=== PATIENT | male | born 2000 | race Caucasian/White ===

== ENCOUNTER 2018-06-06 17:54 | Emergency (ER) | payer BC ==
--- NOTE | 2018-06-06 17:59 | EDM.PDOC ---
<Micheal Jha - Last Filed: 06/06/18 18:55> ED HPI GENERAL MEDICAL PROBLEM - General Stated Complaint: PT HAS STOMACH PAINS Time Seen by Provider: 06/06/18 17:56 Source of Information: Reports: Patient History Limitations: Reports: No Limitations - History of Present Illness INITIAL COMMENTS - FREE TEXT/NARRATIVE: HISTORY AND PHYSICAL: History of present illness: 17-year-old male presenting to emergency department with chief complaint of 2 weeks of progressively worsening abdominal pain and diarrhea with past medical history of Crohn's disease. Patient is originally from [place], [place] where he sees Dr. Gage, therapeutic radiologist. He has been visiting and working in [place] for the past few months. States that over the past 2 weeks he has been having worsening generalized abdominal pain as well as diarrhea. He has been having 2-3 bowel movements for the past 2 weeks with moderate to severe abdominal pain. States that it feels like he needs to defecate but is unable. He does have watery diarrhea and when he does defecate. Over the past 2 days his abdominal pain has worsened and he has started have some nausea and vomiting. States he has not been able to eat or keep anything down. He denies any associated fever, chills, sore throat, cough, or other signs of systemic infection. He has no other significant past medical history other than Crohn's. Patient states that he last saw his therapeutic radiologist approximatly 6 months ago at which time he had a colonoscopy. States that the therapeutic radiologist said that he had a significant amount of polyps in the large and small bowel. Also, patient did have noted polyps in the esophagus. Patient states that the therapeutic radiologist stated that his colon looked like "hamburger meat". He has had previous consult with surgery in [place]. Patient was on Humira for approximately 1-2 months but last dose was approximately 4 months ago. Stopped the medication secondary to his mother not able to afford the medication. At that time he is GI specialist tried to use diet modifications which patient states it seems to have made his symptoms worse. On exam patient has generalized abdominal tenderness specifically in the right upper and left upper quadrant. Abdomen is soft not rigid with positive bowel sounds. Tru Owens index scales core of 9 shows patient in active Crohn's. Review of systems: As per history of present illness and below otherwise all systems reviewed and negative. Past medical history: As per history of present illness and as reviewed below otherwise noncontributory. Surgical history: As per history of present illness and as reviewed below otherwise noncontributory. Social history: No reported history of drug or alcohol abuse. Family history: As per history of present illness and as reviewed below otherwise noncontributory. Physical exam: HEENT: Atraumatic, normocephalic, pupils reactive, negative for conjunctival pallor or scleral icterus, mucous membranes moist, throat clear, neck supple, nontender, trachea midline. Lungs: Clear to auscultation, breath sounds equal bilaterally, chest nontender. Heart: S1S2, regular, negative for clicks, rubs, or JVD. Abdomen: Soft, nondistended, nontender. Negative for masses or hepatosplenomegaly. Negative for costovertebral tenderness. Pelvis: Stable nontender. Genitourinary: Deferred. Rectal: Deferred. Extremities: Atraumatic, negative for cords or calf pain. Neurovascular unremarkable. Neuro: Awake, alert, oriented. Cranial nerves II through XII unremarkable. Cerebellum unremarkable. Motor and sensory unremarkable throughout. Exam nonfocal. Diagnostics: CBC, CMP, CRP, ESR, CT abdomen pelvis, stool culture Therapeutics: 8 mg mg Zofran IV 125 mg IV Solu-Medrol 1 Impression: Nausea and vomiting Recurrent diarrhea Active Crohn's disease Plan: I did initially speak with Dr. Benavidez, hospitalist, about this patient when he presented to let him know that he would most likely be an admission but I had just started the workup. Dr. Mehta was made aware patient history, physical, and pertinent studies ordered. He will be taking over the patient at 1900 hrs. Definitive disposition and diagnosis as appropriate pending reevaluation and review of above. LLQ Pain Score (Numeric/FACES): 7 - Related Data Allergies Allergy/AdvReac Type Severity Reaction Status Date / Time No Known Allergies Allergy Verified 06/06/18 18:09 Home Meds: Home Meds . [No Known Home Meds] 06/06/18 [History] ED ROS GENERAL - Review of Systems Review Of Systems: ROS reveals no pertinent complaints other than HPI. ED EXAM, GENERAL - Physical Exam Exam: See Below Course - Vital Signs Last Recorded V/S: Last Vital Signs Temp 36.9 C 06/06/18 18:06 Pulse 78 06/06/18 20:02 Resp 12 06/06/18 18:06 BP 122/76 06/06/18 20:02 Pulse Ox 98 06/06/18 20:02 - Orders/Labs/Meds Orders: Active Orders 24 hr Category Date Time Status Abdomen Pelvis w Cont [CT] Stat Exams 06/06/18 18:24 Taken CULTURE STOOL + CAMPY+SHIGATOX [RM] Stat Lab 06/06/18 18:26 Ordered UA W/MICROSCOPIC [URIN] Stat Lab 06/06/18 18:24 Ordered WBC, STOOL [OP] Stat Lab 06/06/18 18:26 Ordered Sodium Chloride 0.9% [Saline Flush] Med 06/06/18 18:24 Active 10 ml FLUSH ASDIRECTED PRN Sodium Chloride 0.9% [Saline Flush] Med 06/06/18 18:24 Active 2.5 ml FLUSH ASDIRECTED PRN Sodium Chloride 0.9% [Saline Flush] Med 06/06/18 18:24 Active 2.5 ml FLUSH ASDIRECTED PRN Saline Lock Insert [OM.PC] Stat Oth 06/06/18 18:24 Ordered Medication Orders Sodium Chloride (Saline Flush) 2.5 ml FLUSH ASDIRECTED PRN PRN Reason: Keep Vein Open Last Admin: 06/06/18 19:10 Dose: 2.5 ml Sodium Chloride (Saline Flush) 10 ml FLUSH ASDIRECTED PRN PRN Reason: Keep Vein Open Last Admin: 06/06/18 19:10 Dose: 10 ml Sodium Chloride (Saline Flush) 2.5 ml FLUSH ASDIRECTED PRN PRN Reason: Keep Vein Open Last Admin: 06/06/18 19:11 Dose: 2.5 ml Labs: Laboratory Tests 06/06/18 06/06/18 06/06/18 Range/Units 18:30 18:30 18:30 WBC 21.97 H (4.0-11.0) K/uL RBC 5.48 (4.50-5.90) M/uL Hgb 17.4 H (13.0-17.0) g/dL Hct 47.5 (38.0-50.0) % MCV 86.7 (80.0-98.0) fL MCH 31.8 (27.0-32.0) pg MCHC 36.6 (31.0-37.0) g/dL RDW Std Deviation 40.5 (28.0-62.0) fl RDW Coeff of Savi 13 (11.0-15.0) % Plt Count 261 (150-400) K/uL MPV 12.00 (7.40-12.00) fL Add Manual Diff YES Neutrophils % (Manual) 72 (48.0-80.0) % Band Neutrophils % 3 % Lymphocytes % (Manual) 19 (16.0-40.0) % Monocytes % (Manual) 6 (0.0-15.0) % Nucleated RBC % 0.0 /100WBC Absolute Seg Neuts 15.8 H (1.4-5.7) Band Neutrophils # 0.7 Lymphocytes # (Manual) 4.2 H (0.6-2.4) Monocytes # (Manual) 1.3 H (0.0-0.8) Nucleated RBCs # 0 K/uL ESR 1 (0-14) mm/hr Sodium 136 (136-148) mmol/L Potassium 3.8 (3.5-5.1) mmol/L Chloride 99 (98-107) mmol/L Carbon Dioxide 25.1 (21.0-32.0) mmol/L BUN 8 (7.0-18.0) mg/dL Creatinine 0.9 (0.8-1.3) mg/dL Est Cr Clr Drug Dosing 98.22 mL/min Estimated GFR (MDRD) > 60.0 ml/min Glucose 146 H (74-106) mg/dL Calcium 9.4 (8.5-10.1) mg/dL Total Bilirubin 0.4 (0.2-1.0) mg/dL AST 13 L (15-37) IU/L ALT 11 L (14-63) IU/L Alkaline Phosphatase 105 (46-116) U/L C-Reactive Protein 10.40 H (0.00-0.90) mg/dL Total Protein 8.1 (6.4-8.2) g/dL Albumin 3.6 (3.4-5.0) g/dL Globulin 4.5 H (2.0-3.5) g/dL Albumin/Globulin Ratio 0.8 L (1.3-2.8) Lipase 106 (73-393) U/L Meds: Medications Generic Name Dose Route Start Last Admin Trade Name Tajq PRN Reason Stop Dose Admin Sodium Chloride 2.5 ml 06/06/18 18:24 06/06/18 19:10 Saline Flush FLUSH 2.5 ml ASDIRECTED PRN Administration Keep Vein Open Sodium Chloride 10 ml 06/06/18 18:24 06/06/18 19:10 Saline Flush FLUSH 10 ml ASDIRECTED PRN Administration Keep Vein Open Sodium Chloride 2.5 ml 06/06/18 18:24 06/06/18 19:11 Saline Flush FLUSH 2.5 ml ASDIRECTED PRN Administration Keep Vein Open Discontinued Medications Generic Name Dose Route Start Last Admin Trade Name Tajq PRN Reason Stop Dose Admin Sodium Chloride 1,000 mls @ 999 mls/hr 06/06/18 18:24 06/06/18 18:34 Normal Saline IV 06/06/18 19:24 999 mls/hr BOLUS ONE Administration Iopamidol 66 ml 06/06/18 19:47 06/06/18 19:48 Isovue Multipack-370 (76%) IVPUSH 06/06/18 19:48 66 ml ONETIME STA Administration Methylprednisolone Sodium Succinate 125 mg 06/06/18 18:33 06/06/18 18:39 Solu-Medrol IVPUSH 06/06/18 18:34 125 mg ONETIME ONE Administration Ondansetron HCl 8 mg 06/06/18 18:28 06/06/18 18:34 Zofran IVPUSH 06/06/18 18:29 8 mg ONETIME ONE Administration Departure - Departure Disposition: Against Medical Advice 07 Clinical Impression: Abdominal pain, Crohns disease - Discharge Information Referrals: PCP,None [Primary Care Provider] - Additional Instructions: The following information is given to patients seen in the emergency department who are being discharged to home. This information is to outline your options for follow-up care. We provide all patients seen in our emergency department with a follow-up referral. The need for follow-up, as well as the timing and circumstances, are variable depending upon the specifics of your emergency department visit. If you don't have a primary care physician on staff, we will provide you with a referral. We always advise you to contact your personal physician following an emergency department visit to inform them of the circumstance of the visit and for follow-up with them and/or the need for any referrals to a consulting specialist. The emergency department will also refer you to a specialist when appropriate. This referral assures that you have the opportunity for followup care with a specialist. All of these measure are taken in an effort to provide you with optimal care, which includes your followup. Under all circumstances we always encourage you to contact your private physician who remains a resource for coordinating your care. When calling for followup care, please make the office aware that this follow-up is from your recent emergency room visit. If for any reason you are refused follow-up, please contact the [facility] emergency department at and asked to speak to the emergency department charge nurse. Return KAY as needed as discussed follow-up as planned with private medical doctor in [place]. <Khang Mehta - Last Filed: 06/06/18 20:45> ED HPI GENERAL MEDICAL PROBLEM - History of Present Illness INITIAL COMMENTS - FREE TEXT/NARRATIVE: Patient's CT demonstrates Crohn's disease with no evidence of perforation or abscess patient has had an unremarkable emergency department course I reviewed abnormal lab findings including leukocytosis patient reevaluation he's had no significant interval change in at this point is requesting discharge he is leaving and returning to [place] and requests to see his own private doctor there he understands all the risks and benefits he understands my concerns regarding CT findings the need for more immediate treatment and my recommendation for hospitalization. Patient will be discharged AMA he is declining any further diagnostics or treatment and does agree to return for any persistent or worsening symptoms or changes as discussed Departure - Departure Time of Disposition: 20:45 Condition: Fair - Discharge Information *PRESCRIPTION DRUG MONITORING PROGRAM REVIEWED*: Not Applicable *COPY OF PRESCRIPTION DRUG MONITORING REPORT IN PATIENT RUKHSANA: Not Applicable
[2018-06-06] MEDS ORDERED: Sodium Chloride 0.9% 1,000 ML IV ONE (18:24)
[2018-06-06] MEDS ORDERED: Sodium Chloride 0.9% 2.5 ML Syringe FLUSH PRN ×2 (18:24)
[2018-06-06] MEDS ORDERED: Sodium Chloride 0.9% 10 ML Syringe FLUSH PRN (18:24)
[2018-06-06] MEDS ORDERED: Ondansetron 4 MG/2 ML SDV IVPUSH ONE (18:28)
[2018-06-06] MEDS ORDERED: methylPREDNISolone Sodium Succinate 125 MG/2 ML SDV IVPUSH ONE (18:33)
[2018-06-06 18:59] LABS: CHLORIDE,CL 99 mmol/L (98-107); SODIUM,NA 136 mmol/L (136-148)
[2018-06-06] MEDS ORDERED: Iopamidol 755 MG/ML 200 ML Multipack Bottle IVPUSH STA (19:47)
--- NOTE | 2018-06-08 14:57 | CT ---
EXAM DATE: 06/06/18 PATIENT'S AGE: 17 Patient: BORIS NORRIS Facility: [place], [place] Site . Site : 2000 Study: CT Abdomen/Pelvis [id number]/22/2018 7:44:30 PM Ordering Physician: Doctor Markham Final Report: Indication: Abdominal pain. History of active Crohn`s. Technique: Multiple contiguous axial images were obtained from the lung bases through the symphysis pubis after the intravenous administration of 66 milliliters Isovue 370. Please note that all CT scans at this facility use dose modulation, iterative reconstruction, and/or weight-based dosing when appropriate to reduce radiation dose to as low as reasonably achievable. Comparison: None Findings: The lung bases are clear. The heart is normal in size. No pericardial effusion is identified. The liver, gallbladder, spleen, pancreas, adrenals, and kidneys are normal. Nonobstructive renal right calculi identified. No hydronephrosis is identified. In the pelvis, thickening of the terminal ileum is identified. Free fluid is identified within the pelvis. The urinary bladder has a grossly normal morphology. The small large bowel are normal in caliber. There is no evidence of small-bowel obstruction question of thickening of the wall of the ascending colon is identified. No free air is identified. The aorta is normal in caliber. Next filed Impression: Findings most consistent with Crohn`s disease including thickening of the terminal ileum and the ascending colon. Free fluid is identified within the pelvis. No evidence of bowel obstruction. No free air Please note that all CT scans at this facility use dose modulation, iterative reconstruction, and/or weight-based dosing when appropriate to reduce radiation dose to as low as reasonably achievable. Dictated by Yue Briggs MD @ Jun 06 2018 8:21PM (Electronic Signature) Report Signed by Proxy. ALAYNA
== END 2018-06-06 20:55 | disposition left against medical advice (07) ==
LOC: MW.ED 17:54
DX: K50.90 Crohn's disease, unspecified, without complications (principal)
CPT/HCPCS: 36415; 74177; 80053; 83690; 85025; 85652; 86140; 96361; 96374; 96375; 99284; J2405; J2930; J7040; Q9967